=== PATIENT | male | born 1940 | race Caucasian/White ===

== ENCOUNTER 2023-07-07 17:55 | Emergency (ER) | payer MEDICARE, BC, SELFPAY ==
[2023-07-07 18:01] VITALS: BP 118/89
[2023-07-07 19:03] VITALS: BP 93/62
--- NOTE | 2023-07-07 19:10 | ED.GENMED ---
History of Present Illness
General
Chief Complaint: Weakness
Source: patient
Exam Limitations: none
Time Seen by Provider: 07/07/23 18:29
Travel History
Have you had any contact with someone who has COVID-19?: No
Do you have any symptoms of coronavirus? Fever > 100 degrees, chills, cough, shortness of breath, sore throat, loss of taste or smell, muscle aches, or headache?: No
History of Present Illness
History of Present Illness:
This is a 82 year old male that comes in with c/o weakness. States that for the past couple of days he has felt weak and tired. States that he just doesn't have the strength that he normally has in his arms. States that for the past 2 days it has
felt worse. States that his bowel are loss and that his blood sugar has been up and down. states that he vomited twice yesterday and he is really not eating. States that his head feels heavy and he is dizzy. Denies any fever, chills, chest
pain, SOB, abd pain, headache, urinary burning.
Past History
Past History
ED Past Medical History: Cancer (Skin cancer), HTN, Hypercholesterolemia, NIDDM, [place] and Other (Ulcers, Polio, )
ED Past Surgical History: Cardiac (triple bypass) and Orthopedic (Left knee)
Social History
Tobacco: Former smoker
Alcohol: Occasional
Drug: None
Personal:
Living: with family
Review of Systems
Review of Systems
All Other Systems: ROS reviewed and negative except as documented in HPI and ROS
Constitutional: Reports no symptoms; Denies fever or chills
EENT: Reports no symptoms
Respiratory: Reports no symptoms; Denies cough or trouble breathing
Cardiac: Reports no symptoms; Denies chest pain
ABD/GI: Reports nausea, vomiting and other (Loss stool); Denies abdominal pain
: Reports no symptoms
Musculoskeletal: Reports no symptoms
Skin: Reports no symptoms
Neurological: Reports dizzy (head feels heavy) and weakness (Generalized weakness); Denies headache
Psychiatric: Reports no symptoms
Phy Exam
General Physical Exam
General Presentation: no apparent distress
General age: appears stated age
General Skin: warm and dry
General Habitus: elderly
General Mental: alert
General Hydration: appears well hydrated
ENT Exam
ENT Exam: TM's normal, pharynx normal and neck supple
Eye Exam
Eye Exam: EOMI
Cardiovascular Exam
Cardiovascular Exam: regular rate/rhythm, no edema and normal peripheral pulses
Pulmonary Exam
Pulmonary Exam: lungs clear, no respiratory distress, no rales, chest non tender, no crackles, no rhonchi, no wheezing and no cough
Gastrointestinal Exam
Gastrointestinal Exam: normal bowel sounds, non tender, soft, no organomegaly, no pulsatile mass and non distended
NIH Stroke Score
Level of Consciousness: 0 - Alert
LOC questions: 0-Answers both correctly
LOC Commands: 0-Performs both correctly
Best Gaze: 0-Normal
Visual Wilder: 0=Normal, no visual loss
Facial palsy: 0=Normal, symmetrical
Motor - Right Arm: 0=No drift 10 seconds
Motor - Left Arm: 0=No drift 10 seconds
Motor - Right Le-No drift 5 seconds (Unable to lift due to Polo, chronic weakness)
Motor - Left Le-No drift 5 seconds (Unable to lift due to Polo, Chronic weakness)
Limb Ataxia: 0-Absent
Sensation: 0-Normal
Best Language: 0-No aphasia
Dysarthria: 0-Normal
Extinction and Inattention: 0-No abnormality
Total Score:: 0
Musculoskeletal Exam
Musculoskeletal Exam: edema (Slight left lower leg edema) and other (Chronic lower leg weakness due to Polo. Right foot brace. Hand grasp equal)
Skin Exam
Skin Exam: normal color, warm/dry, no rash and no petechia
Psychiatric Exam
Psychiatric Exam: normal mood/affect
Course
Orders/Labs/Results
Orders:
Orders
07/07/23 19:09
CT Head W/o Iv Contrast Urgent
Comment:
Reason For Exam: Generalized weakness, Dizziness
0.9% Sodium Chloride 1000 ml [Nss] 1,000 ml IV BOLUS
07/07/23 19:10
Ondansetron Injectable [Zofran] 4 mg IV NOW STA
07/07/23 19:19
Electrocardiogram (*1) Urgent
Reason for Study: Fatigue / Weakness
EKG- Treatment ONCE
07/07/23 19:20
COVID-19 Antigen Urgent
Source: Nasal Swab
Complete Blood Count/With Diff Urgent
Comprehensive Metabolic Panel Urgent
Manual Differential Urgent
07/07/23 21:36
Urinalysis Reflex To Culture Urgent
Date Specimen was Collected: 07/07/23
Time Specimen was Collected: 19:14
Abnormal Lab Results
07/07/23 07/07/23
19:20 21:36
WBC 11.8 H 10^3/uL
(4.8-10.8)
RBC 3.17 L 10^6/uL
(4.70-6.10)
Hgb 9.5 L g/dL
(13.0-18.0)
Hct 29.0 L %
(39.0-52.0)
MCHC 32.8 L g/dL
(33.0-37.0)
MPV 10.7 H fL
(7.4-10.4)
Abs Neuts (Manual) 10.1 H 10^3/uL
(1.4-6.5)
Band Neutrophils 11 H %
(0-3)
Lymphocytes (Manual) 9 L %
(20-51)
Sodium 134 L mmol/L
(135-145)
Chloride 97 L mmol/L
(98-107)
BUN 54 H mg/dl
(9-20)
Glucose 236 H mg/dl
(70-99)
Total Protein 6.2 L g/dl
(6.3-8.2)
Urine Glucose 3+ A
(Negative)
07/07/23 19:20
07/07/23 19:20
WBC slightly elevated. H/H low, bandemia, Dehydration. Glucose nonfasting. COVID negative. Urine negative for inection.
Vital Signs
Initial and Last Documented VS:
Initial Vital Signs
Temp Pulse Resp BP Pulse Ox
98.0 F 81 18 118/89 96
07/07/23 18:01 07/07/23 18:01 07/07/23 18:01 07/07/23 18:01 07/07/23 18:01
Last Documented Vital Signs
Temp Pulse Resp BP Pulse Ox
98.0 F 81 18 118/89 96
07/07/23 18:01 07/07/23 18:01 07/07/23 18:01 07/07/23 18:01 07/07/23 18:01
MDM/Problems Addressed
Differential Diagnosis Includes:
COVID, Generalized weakness, UTI
MDM/Problems Addressed:
This is a 82 year old male that comes in with c/o weakness for the past couple of days. State that in the past 2 days it seemed to get worse. States that his blood sugar has been up and down.
Will check labs. CT head, IV fluids and urine.
back into see patient. States that he is feeling some better. Explained that his blood work shows that he is dehydrated. This may also be a viral syndrome. Encouraged patient to follow up with the family doctor, Increase his water intake and return
with any concerns. Will also give patient a prescription for Zofran to use if any nausea/vomiting.
Chronic conditions affecting care:
NA
Acute Exacerbation and/or Progression of Chronic Illness:
NA
*Radiology
Radiology exam reviewed: radiology read reviewed (head-No acute intracranial abnormality. )
*Pulse Oximetry
Patient hypoxic: no
*EKG
Interpreted by ED Provider?: Yes
Heart Rate: 78
Rate: normal
Rhythm: sinus arrhythmia
[place]: left axis deviation
Interval: normal interval
QRS Pattern: normal QRS
Ischemia: T-wave inversion (aVL, V4, V5, V6 Checked by Dr. Ordonez)
*Shop Mechanic Interpretation
Rate: normal
Heart Rate: 79
Rhythm: sinus
*Critical Care Note
Total Time (30-74mins, 75-104mins- exclusive of procedures): Not Applicable
ED Attending Note
-
Portions of this chart may have been created with voice recognition software.� Occasional wrong word or��sound alike� substitutions may have occurred due to the inherent limitations of voice recognition software.
Discharge Plan
Departure
Patient Disposition: Home (Routine Discharge)
Date of Disposition: 07/07/23
Time of Disposition: 22:47
Patient with high blood pressure during this ER visit?: No
Condition: Good
Covid-19: Negative COVID-19
Discharge Problem:
Acute dehydration, Generalized weakness
Instructions: Dehydration, Adult (DC), Nausea and Vomiting, Adult (DC), Generalized Weakness (DC)
Prescriptions:
New
ondansetron 4 mg tablet,disintegrating
4 mg PO Q8H PRN (Reason: Nausea and vomiting) Qty: 7 0RF
No Action
tamsulosin 0.4 mg Capsule
0.4 mg PO DAILY
aspirin 81 mg Tablet,Chewable
81 mg PO DAILY
pantoprazole 40 mg Tablet,Delayed Release (Dr/Ec)
40 mg PO DAILY
escitalopram oxalate 10 mg tablet
10 mg PO DAILY
rosuvastatin 20 mg tablet
20 mg PO HS
Jardiance 25 mg tablet
25 mg PO DAILY
Trulicity 4.5 mg/0.5 mL pen injector
4.5 mg SC WEEKLY
metformin 500 mg tablet
1,000 mg PO BID@0800,1700
oxybutynin chloride 10 mg tablet extended release 24hr
10 mg PO DAILY
ramipril 2.5 mg capsule
2.5 mg PO DAILY
Levemir FlexPen 100 unit/mL (3 mL) insulin pen
18 unit SC HS
Trulicity 3 mg/0.5 mL pen injector
3 mg SC MO
Referrals:
Raj Renteria MD [Family Provider] - Follow up in 2-3 days
Activity Restrictions/Additional Instructions:
As discussed, your blood work shows that you are dehydrated. Please increase your water intake to 8-8oz glasses. You are negative for COVID and your Urine is negative for infection. Your CT of the head is normal. Please follow up with the family
doctor for further evaluation in 2-3 days. You have also been given a prescription for any nausea/vomiting. IF YOU HAVE ANY OTHER CONCERNS PLEASE RETURN TO THE EMERGENCY ROOM.
Interventions
Interventions:
*Risk Screen - Suicide Last Done: 07/07/23 18:01
*General Assessment Last Done: 07/07/23 18:01
*Neglect/Abuse Screening Last Done: 07/07/23 18:01
Discharge Date and Time
Print Language: SLOVAK
[2023-07-07] MEDS: NSS 1000 IV (19:15)
[2023-07-07] MEDS: ZOFRAN 4 MG IV (19:17)
[2023-07-07 19:22] VITALS: BMI 21.6
[2023-07-07 20:10] LABS: Hemoglobin 9.5 g/dL (13.0-18.0); Mean Corp Hgb Conc. 32.8 g/dL (33.0-37.0); Mean Corpuscular Volume 91.5 fL (80.0-94.0); Mean Platelet Volume 10.7 fL (7.4-10.4); Platelet Count 199 10^3/uL (130-400); Red Blood Cell Count 3.17 10^6/uL (4.70-6.10); Red Cell Dist. Width 14.2 % (11.5-14.5); White Blood Cell Count 11.8 10^3/uL (4.8-10.8)
[2023-07-07 20:20] LABS: ALT (SGPT) 21 U/L (0-50); AST (SGOT) 21 U/L (17-59); Albumin 3.8 g/dl (3.5-5.0); Alkaline Phosphatase 68 U/L (38-126); Blood Urea Nitrogen 54 mg/dl (9-20); COVID-19 Antigen Negative (Negative); Calcium 8.9 mg/dl (8.4-10.2); Carbon Dioxide 27 mmol/L (22-30); Chloride 97 mmol/L (98-107); Estimated Creatinine Clearance 46 ml/min; Glucose 236 mg/dl (70-99); Potassium 4.3 mmol/L (3.5-5.1); Sodium 134 mmol/L (135-145); Total Bilirubin 0.4 mg/dl (0.2-1.3); Total Protein 6.2 g/dl (6.3-8.2); eGFR > 60.00
[2023-07-07 21:01] LABS: Absolute Neutrophils -Man Diff 10.1 10^3/uL (1.4-6.5); Atypical Lymphocytes 2 %; Band Neutrophils 11 % (0-3); Lymphocytes 9 % (20-51); Monocytes 3 % (2-9); Platelets Checked Yes; Segmented Neutrophils 75 % (42-75)
[2023-07-07 21:02] LABS: Normal RBC Morphology Yes; Total Cells Counted 100
[2023-07-07 21:47] LABS: Urine Albumin Negative (Neg - Trace); Urine Bilirubin Negative (Negative); Urine Character Clear (Clear); Urine Color Yellow; Urine Glucose 3+ (Negative); Urine Ketone Negative (Negative); Urine Leukocyte Negative (Negative); Urine Nitrite Negative (Negative); Urine Occult Blood Negative (Negative); Urine Urobilinogen Negative (Neg - 1+)
[2023-07-07 23:10] VITALS: BP 96/59
== END 2023-07-07 23:22 | disposition home or self-care (01) ==
LOC: EMR 17:55
PROVIDERS: Clinical Nurse Specialist Family Health; EMERGENCY PHYSICIAN Emergency Medicine; FAMILY PHYSICIAN Internal Medicine
DX: E86.0 Dehydration (principal); Z11.52 Encounter for screening for COVID-19; Z87.891 Personal history of nicotine dependence
CPT/HCPCS: 99285; 96374; 96361; 70450; 80053; 81003; 85025; 87811; 93005

== ENCOUNTER 2024-07-02 22:53 | Emergency (ER) | payer MEDICARE, BC, SELFPAY ==
[2024-07-02 23:02] LABS: Glucose - Point of Care 218 mg/dl (70-99)
[2024-07-02 23:15] VITALS: BP 157/49; BMI 24.2
--- NOTE | 2024-07-02 23:26 | ED.CVA ---
History of Present Illness
General
Chief Complaint: CVA/TIA Symptoms
Source: patient, family and ambulance crew
Exam Limitations: clinical condition and altered mental status
Time Seen by Provider: 07/02/24 22:56
Onset of Stroke Symptoms
Onset of symptoms known: Yes
Date of onset of symptoms: 07/03/24
History of Present Illness
History of Present Illness:
This an 83-year-old male with a history of diabetes, hypertension, hyperlipidemia presents after altered mental status at home. Medics called via the EMS squad line calling for stroke alert. They report that the patient had what appeared to be an
aphasia. He was last seen normal at 9:30 PM. Shortly after arrival I spoke to the patient's who states that she had heard a thud and realized he had fallen. She found him on the floor. She states he was lucid and seemed okay but she could
not get him up so called a neighbor. They decided to leave him alone until medics got there. On arrival the patient is agitated and confused.
Past History
Past History
ED Past Medical History: Cancer (Skin cancer), HTN, Hypercholesterolemia, NIDDM, [place] and Other (Ulcers, Polio, )
ED Past Surgical History: Cardiac (triple bypass) and Orthopedic (Left knee)
Social History
Tobacco: Former smoker
Alcohol: Occasional
Drug: None
Personal:
Living: with family
Phy Exam
Physical Exam
Physical Exam:
CONSTITUTIONAL Patient alert and oriented to person. ill-appearing. Vital signs reviewed. Awake but agitated. Trying to get out of the bed on arrival
HEAD atraumatic, normocephalic.
EYES eyelids normal to inspection, Extraocular muscles intact, Conjunctiva normal, Sclera normal.
NECK normal range of motion, Trachea midline, no jugular venous distention. No obvious midline tenderness
RESPIRATORY CHEST No respiratory distress noted, Chest expansion equal
ABDOMEN abdomen nontender, Bowel sounds normal. No distention.
BACK normal inspection, no obvious deformities
UPPER EXTREMITY range of motion normal, Motor strength normal, no cyanosis, no edema.
LOWER EXTREMITY no cyanosis, no edema.
NEURO speech is clear but patient is agitated and somewhat confused. Does follow commands briefly but certainly poorly and does not follow through. Does have a boot on the right lower extremity. I did not witness him moving his lower
extremities but he does have a noted history of polio. There is no obvious cranial nerve deficit. There is no pronator drift
Course
Orders/Labs/Results
Orders:
Orders
07/02/24 22:56
CT HEAD STROKE ALERT W/o Cont Urgent
Comment:
Reason For Exam: confusion, acute onset
CT HEAD/NECK ANG STROKE ALERT Urgent
Comment:
Reason For Exam: confusion, acute onset
Bedside Glucose- Treatment ONCE
Cardiac Monitoring- Treatment ONCE
IV Insert/Care/Rem.- Treatment PRN
O2 Therapy [RESP] Stat
Titrate/Wean O2 to maintain O2 sat greater than (%): 88
Pulse Ox/cont/shift [RESP] Stat
Quantity: 1
07/02/24 22:57
Electrocardiogram (*1) Stat
Reason for Study: Other
Other Reason for Exam: neuro symptoms
EKG- Treatment ONCE
Drug Screen, Urine [Urine Drug Abuse Screen] Urgent
07/02/24 22:58
Urinalysis Reflex To Culture Urgent
07/02/24 23:29
Alcohol Urgent
Complete Blood Count/With Diff Urgent
Comprehensive Metabolic Panel Urgent
PTT Urgent
Prothrombin Time Urgent
07/02/24 23:50
Nicardipine 40 mg/200 ml [Cardene] 40 mg in 200 ml .ROUTE .STK-MED
07/02/24 23:58
Nicardipine INF (STD CONC-40 mg/200 mL) NOW x 1 BAG Nicardipine 40 mg/200 ml [Cardene] 40 mg in 200 ml IV NOW
Initial dose in mg/hr, then titrate:: 5
Titrate to keep:: SBP 120 - 140 mmHg
Titrate by mg/hr:: 2.5 mg/hr
Frequency of titrations (minutes):: 5-15 minutes
Maximum dose in mg/hr:: 15
Begin to taper infusion when:: Remained at goal for 2hrs
Taper by mg/hr:: 2.5 mg/hr
Frequency of taper (minutes) if patient maintains goal:: 15-30 minutes
Taper to off?: Yes
If infusion off & no longer maintaining goal:: Contact Provider
Abnormal Lab Results
07/02/24 07/02/24
23:01 23:29
RBC 3.69 L 10^6/uL
(4.70-6.10)
Hgb 11.2 L g/dL
(13.0-18.0)
Hct 34.1 L %
(39.0-52.0)
MCHC 32.8 L g/dL
(33.0-37.0)
Absolute Lymphs (auto) 3.5 H 10^3/uL
(1.2-3.4)
Absolute Monos (auto) 0.7 H 10^3/uL
(0.1-0.6)
Potassium 5.9 H mmol/L
(3.5-5.1)
BUN 37 H mg/dl
(9-20)
Glucose 222 H mg/dl
(70-99)
POC Glucose 218 H mg/dl
(70-99)
07/02/24 23:29
07/02/24 23:29
Vital Signs
Initial and Last Documented VS:
Initial Vital Signs
Temp Pulse Resp BP Pulse Ox
98.7 F 88 16 157/49 98
07/02/24 23:15 07/02/24 23:15 07/02/24 23:15 07/02/24 23:15 07/02/24 23:15
Last Documented Vital Signs
Temp Pulse Resp BP Pulse Ox
98.7 F 90 14 164/80 99
07/02/24 23:15 07/02/24 23:45 07/02/24 23:45 07/02/24 23:39 07/02/24 23:26
MDM/Problems Addressed
MDM/Problems Addressed:
Acute subdural hematoma, acute uncontrolled hypertension
*Radiology
Radiology exam reviewed: preliminary read by ED provider (Left-sided subdural noted by my review)
*Pulse Oximetry
Patient hypoxic: no
*EKG
Interpreted by ED Provider?: Yes
Interpretation: abnormal
Rate: normal
[place]: left axis deviation
Ischemia: non-specific ST changes
*Astronaut Mission Specialist Interpretation
Rate: normal
Interpretation: normal
Rhythm: sinus
*Critical Care Note
Total Time (30-74mins, 75-104mins- exclusive of procedures): 40 minutes
Data Reviewed
Source: patient, family and ambulance crew
Prescriptions/Medications Considered But Not Given:
Consider DDAVP but trauma surgery will reassess
Patient Management
Discussion with other providers: Activities Concierge (Trauma surgery at [facility]) and Radiologist
Escalation/DeEscalation of care consider admission/obs:
Case discussed with trauma surgery. Case discussed with radiologist. Patient presents after a fall at home and comes in with altered mental status. Found to have subdural hematoma. Patient does state that he takes 81 mg of aspirin daily but no
other anticoagulants. Trauma surgery recommends keeping blood pressure below 140 systolic. 2.5 mg/h Cardene drip initiated. Flight team at bedside. Patient's gave verbal consent for transfer
ED Attending Note
-
Portions of this chart may have been created with voice recognition software.� Occasional wrong word or��sound alike� substitutions may have occurred due to the inherent limitations of voice recognition software.
Discharge Plan
Departure
Patient Disposition: Acute Care Hospital
Date of Disposition: 07/02/24
Time of Disposition: 23:26
Discharge Problem:
Subdural hematoma
Prescriptions:
No Action
tamsulosin 0.4 mg Capsule
0.4 mg PO BID
escitalopram oxalate 10 mg tablet
10 mg PO DAILY
rosuvastatin 20 mg tablet
20 mg PO HS
Jardiance 25 mg tablet
25 mg PO DAILY
metformin 500 mg tablet
1,000 mg PO BID@0800,1700
oxybutynin chloride 10 mg tablet extended release 24hr
10 mg PO BID
insulin glargine [Basaglar KwikPen U-100 Insulin] 100 unit/mL (3 mL) Insulin Pen
10 unit SC HS
Trulicity 1.5 mg/0.5 mL Pen Injector
1.5 mg SC QWEEK
Hospital Transfer
Other hospital: [facility]
I certify that the patient requires transfer: Yes
Discussed case with accepting physician: Dr Murrya
Reason for transfer: specialties available
Interventions
Interventions:
*Risk Screen - Suicide Last Done: 07/02/24 23:15
*General Assessment Last Done: 07/02/24 23:15
*Neglect/Abuse Screening Last Done: 07/02/24 23:15
*ED COVID-19 Vaccine History Last Done: 07/02/24 23:15
ED- Pulmonary Assessment Last Done: 07/02/24 23:21
ED- Neurological Assessment Last Done: 07/02/24 23:21
ED- Cardiac Assessment Last Done: 07/02/24 23:21
ED Swallowing Screen Last Done: 07/02/24 23:21
Discharge Date and Time
Print Language: BERMUDIAN
[2024-07-02 23:36] LABS: % Basophils 0.2 % (0-2); % Eosinophils 2.2 % (0-6); % Immature Granulocytes 0.2 % (0-0.5); % Lymphocytes 39.5 % (20.5-51.1); % Neutrophils 49.9 % (42.2-75.2); Absolute Eosinophils 0.2 10^3/uL (0-0.7); Absolute Lymphocytes 3.5 10^3/uL (1.2-3.4); Absolute Monocytes 0.7 10^3/uL (0.1-0.6); Absolute Neutrophils 4.5 10^3/uL (1.4-6.5); Hematocrit 34.1 % (39.0-52.0); Hemoglobin 11.2 g/dL (13.0-18.0); Mean Corp Hgb Conc. 32.8 g/dL (33.0-37.0); Mean Corpuscular Hgb 30.4 pg (27.0-31.0); Mean Corpuscular Volume 92.4 fL (80.0-94.0); Mean Platelet Volume 10.1 fL (7.4-10.4); Nucleated Red Blood Cells % 0 % (-); Platelet Count 214 10^3/uL (130-400); Red Blood Cell Count 3.69 10^6/uL (4.70-6.10); Red Cell Dist. Width 14.2 % (11.5-14.5)
[2024-07-02 23:39] VITALS: BP 164/80
--- NOTE | 2024-07-02 23:40 | PHANOTE ---
med rec tech(07/02/24)-Attempted to call spouse at numbers on chart, but had no response, will try again later. Assembled medication list through [facility] and details from Dr. Romeo's conversation with spouse at same number. Will attempt to call
again before end of shift.
[2024-07-02 23:44] LABS: APTT 26.1 Sec (23.4-35.0); INR 0.95; PT 13.2 Sec (11.4-14.6)
[2024-07-02 23:48] LABS: ALT (SGPT) 25 U/L (0-50); AST (SGOT) 26 U/L (17-59); Albumin 4.4 g/dl (3.5-5.0); Alkaline Phosphatase 71 U/L (38-126); Blood Urea Nitrogen 37 mg/dl (9-20); Calcium 9.6 mg/dl (8.4-10.2); Carbon Dioxide 30 mmol/L (22-30); Chloride 104 mmol/L (98-107); Estimated Creatinine Clearance 57 ml/min; Glucose 222 mg/dl (70-99); Potassium 5.9 mmol/L (3.5-5.1); Sodium 144 mmol/L (135-145); Total Bilirubin 0.4 mg/dl (0.2-1.3); eGFR > 60.00
[2024-07-02 23:50] LABS: Alcohol None Detected
[2024-07-02] MEDS: CARDENE 200 IV (23:59)
[2024-07-03 00:01] VITALS: BP 137/88
[2024-07-03 00:21] LABS: Urine Albumin Negative (Neg - Trace); Urine Bilirubin Negative (Negative); Urine Character Clear (Clear); Urine Color Yellow; Urine Glucose 4+ (Negative); Urine Ketone Negative (Negative); Urine Leukocyte Negative (Negative); Urine Nitrite Negative (Negative); Urine Occult Blood Negative (Negative); Urine Urobilinogen Negative (Neg - 1+); Urine pH 6.5 (5.0-9.0)
[2024-07-03 01:00] LABS: Amphetamines Negative (Negative); Barbiturates Negative (Negative); Benzodiazepines Negative (Negative); Buprenorphine Negative (Negative); Cocaine Negative (Negative); Marijuana Negative (Negative); Methadone Negative (Negative); Methamphetamines Negative (Negative); Opiates Negative (Negative); Phencyclidine Negative (Negative); Tricyclic Antidepressants Negative (Negative)
== END 2024-07-03 00:36 | disposition short-term general hospital (02) ==
LOC: EMR 22:53
PROVIDERS: Emergency Medicine; EMERGENCY PHYSICIAN Emergency Medicine
DX: S06.5XAA Traumatic subdural hemorrhage with loss of consciousness status unknown, initial encounter (principal); W19.XXXA Unspecified fall, initial encounter; E11.9 Type 2 diabetes mellitus without complications; E78.00 Pure hypercholesterolemia, unspecified; I10 Essential (primary) hypertension; Z85.828 Personal history of other malignant neoplasm of skin; Z87.891 Personal history of nicotine dependence
CPT/HCPCS: 99291; 96374; 70450; 70496; 70498; 80053; 80306; 81003; 82077; 82962; 85025; 85610; 85730; 93005; Q9967

== ENCOUNTER 2024-11-08 19:07 | Inpatient (IN) | payer MEDICARE, SELFPAY ==
[2024-11-08] VITALS (36 sets, daily range): BP systolic 121–146; BP diastolic 56–81; BMI 24.2; BMI 23.1
[2024-11-08 17:35] LABS: Glucose - Point of Care 125 mg/dl (70-99)
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
[2024-11-08] MEDS: NSS 500 IV (18:15)
[2024-11-08 18:19] LABS: Hematocrit 29.4 % (39.0-52.0); Hemoglobin 9.9 g/dL (13.0-18.0); Mean Corp Hgb Conc. 33.7 g/dL (33.0-37.0); Mean Corpuscular Volume 90.7 fL (80.0-94.0); Nucleated Red Blood Cells % 0 % (-); Platelet Count 226 10^3/uL (130-400); Red Cell Dist. Width 13.2 % (11.5-14.5)
[2024-11-08 18:33] LABS: INR 1.01; PT 13.6 Sec (11.4-14.6)
[2024-11-08 18:34] LABS: APTT 26.6 Sec (23.4-35.0)
[2024-11-08 18:46] LABS: Blood Urea Nitrogen 27 mg/dl (9-20); Calcium 7.8 mg/dl (8.4-10.2); Carbon Dioxide 22 mmol/L (22-30); Chloride 110 mmol/L (98-107); Estimated Creatinine Clearance 72 ml/min; Glucose 101 mg/dl (70-99); Potassium 4.0 mmol/L (3.5-5.1); Sodium 139 mmol/L (135-145); eGFR > 60.00
[2024-11-08] MEDS: TNKASE 3.4 MG IV (18:50)
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
--- NOTE | 2024-11-08 20:30 | PTCARENOTE ---
rec'd pt from ER around 1940, handoff NIH completed with ER nurse. NIH 9 (see flowsheet - mild aphasia, R facial droop, no mvmt against gravity in b/l LE). stroke flowsheet ongoing. pt with clear speech but confused conversation. pupils b/l 2mm
brisk. SCDs placed, BP and HR stable - see VS. on RA, O2 sat 99%. pt remains NPO, oral care provided. pt bladder scan for 372ml, CC #25 placed. PIV x2 flushed. CXR done. stroke packet given. HOB 30 degrees, bed alarm on. call randhawa in reach.
[2024-11-08] MEDS: CRESTOR PO (20:44)
[2024-11-09] VITALS (51 sets, daily range): BP systolic 102–150; BP diastolic 54–97; BMI 23.1
--- NOTE | 2024-11-09 01:10 | PTCARENOTE ---
pt reassessed. stroke neuro checks continue, neuro status unchanged. pt remains forgetful at times, picking at gown. bleeding precautions maintained. pt voiding with CC. HOB remains 30 degrees, bed alarm on. call randhawa in reach.
[2024-11-09 02:08] LABS: Glucose - Point of Care 127 mg/dl (70-99)
--- NOTE | 2024-11-09 02:58 | W.PN.UPDATE ---
Update Note
Progress Note Update
0200- After TNK patient had initial improvement with aphasia and was able to answer short words/phrases and had improvement with right facial droop. Now patient with worsening aphasia globally with garbled speech. He is unable to follow complex
commands or mimic examiner. NIH 12. Repeat Stat Ctscan of the head w/o contrast ordered. SBP 140s, no hypotension or changes in BP. [facility] stroke neurologist Dr. Izaguirre updated and reviewed case. Repeat Ctscan negative for bleed. Will give 500cc
IVF fluid bolus. EEG ordered routine.
NEURO:
Mental Status:�Alert but unable to verbalize answers to questions for orientation. Language is garbled.
Cranial Nerve:�Pupils are equal, round, and reactive to light. Ocular movements are intact. Face has right facial droop. Significant dysarthria.
Motor:�Strength is 5/5 on left arm and right arm, bilateral legs 0/5 (history of polio)
Sensory:�Sensation grossly intact.
Coordination:�Unable to assess as he was unable to follow commands or mimic direction
Gait:�Deferred due to acuity
--- NOTE | 2024-11-09 03:00 | PTCARENOTE ---
@ 0152 stroke neuro check, pt with progressively worse aphasia, barely following commands with constant reiteration, garbled speech, not answering orientation questions correctly. pt with hand tremors, BGM checked - result 127. NIH performed, new
score of 12 - see flowsheet. ICU [facility] made aware and to bedside to reassess pt. stat head CT ordered, [facility] communicating with [facility] team. 500cc NS bolus ordered. routine EEG ordered. bleeding precautions maintained, call randhawa in reach. care
continues.
[2024-11-09] MEDS: NSS 500 IV (03:06)
[2024-11-09 03:10] LABS: Hematocrit 29.4 % (39.0-52.0); Hemoglobin 9.9 g/dL (13.0-18.0); Mean Corp Hgb Conc. 33.7 g/dL (33.0-37.0); Mean Corpuscular Volume 88.8 fL (80.0-94.0); Platelet Count 219 10^3/uL (130-400); Red Cell Dist. Width 13.3 % (11.5-14.5)
[2024-11-09 03:20] LABS: INR 1.06; PT 14.2 Sec (11.4-14.6)
[2024-11-09 03:21] LABS: APTT 25.5 Sec (23.4-35.0)
[2024-11-09 03:29] LABS: Blood Urea Nitrogen 29 mg/dl (9-20); Calcium 9.2 mg/dl (8.4-10.2); Carbon Dioxide 24 mmol/L (22-30); Chloride 105 mmol/L (98-107); Estimated Creatinine Clearance 63 ml/min; Glucose 118 mg/dl (70-99); HDL Cholesterol 58 mg/dl; LDL Cholesterol, Calculated 46 mg/dl; Potassium 4.8 mmol/L (3.5-5.1); Sodium 138 mmol/L (135-145); Very Low Density Lipoprotein 16 mg/dl (0-30); eGFR > 60.00
--- NOTE | 2024-11-09 07:30 | PTCARENOTE ---
Received patient A&Ox0, drowsy, arousable to voice/own name, unable to answer question appropriately, unable to follow simple commands, Right facial droop present, Aphasia, Dysarthria, Left Arm stronger than Right Arm, B/L LE no efforts, new NIH
score 18. Dairy Tester at bedside, pending STAT head CT.
Other physical assessments include patient on RA, NSR w/ PACs, BP WNL, failed nursing bedside swallow eval, NPO now, condom cath in place.
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
--- NOTE | 2024-11-09 08:36 | W.PN.HOSP.TC ---
Today's Communication/Plan
-
See plan
Assessment / Plan
Assessment / Plan
Physical exam:
General: Acutely ill
HEENT: Normocephalic, Atraumatic and Moist Mucous Membranes
Respiratory: Clear to Auscultation; Negative Wheezes, Rales or Rhonchi
Cardiac: Regular Rhythm and S1/S2
GI: Soft, Nontender and Nondistended
Musculoskeletal: No Clubbing, No Cyanosis and No Edema
Neuro: Lethargic, decreased strength of right upper extremity with drift down to the bed, decreased strength in both lower extremity with history of polio, right facial droop present, does follow simple command, aphasia.
Psych: Limited judgment and insight. Restless and sometimes agitated on and off.
A/P:
Acute stroke:
Status post TNK last evening
Neurology reconsulted this morning-discussed with neurology via [place] text
Repeat a CT scan x 2 with no acute bleed
Plan for MRI of the brain
PT OT eval and garage door technician consulted upon admission
Speech therapy recommend keep n.p.o.
Neurology ordering aspirin for later this evening and continue statins.
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
Gentle IV fluid hydration
Plan for echocardiogram in a.m.
Discussed with daughter over the phone,Mili Munguia ([phone]). Also, family will bring accurate list of medications to the hospital.
Toxic metabolic encephalopathy:
Likely related to stroke
Rule out seizures or other acute issues
Plan for EEG
Seen repeated CT scans
Continue to monitor mental status and behavior
Nonviolent restraints for now
History of subdural hematoma:
Patient was in rehab after intracranial bleed and then was doing home PT OT
History of CAD:
On anti-ischemic regimen until able to take oral
Diabetes mellitus type 2:
Insulin sliding scale
Monitor blood sugars closely
Anemia:
No signs of active bleeding
Continue to monitor hemoglobin closely
Other medical problems:
History of Polio
History of depression
History of GERD
Hypertension
Hyperlipidemia
BPH
DVT prophylaxis
SCDs (less than 24 hours of thrombolytics)
CODE STATUS:
Full code
Total Critical Care Time__45___ minutes. I was immediately available to the patient and staff. I personally examined, reviewed labs, diagnostic images/reports, interpretations, treatment plans, discussed patient care with other providers and
family or caregivers (if patient is unable to make decisions), entered orders as appropriate and documented the medical record.
Anticipated Discharge: > 48 hours
Subjective/Interval History
-
Date of Service: November 09, 2024
Overnight events reviewed. Patient seen and examined. Asked to see him urgently this morning. Patient remains encephalopathic but follows simple commands occasionally. Aphasic
Objective Data
-
Labs:
Laboratory Results
11/09/24
03:00
WBC 11.0 H
Hgb 9.9 L
Hct 29.4 L
Plt Count 219
PT 14.2
INR 1.06
APTT 25.5
Sodium 138
Potassium 4.8
Chloride 105
Carbon Dioxide 24
BUN 29 H
Creatinine 0.8
Glucose 118 H
Calcium 9.2
Vital Signs:
Vital Signs
Temp Pulse Resp BP Pulse Ox
98.9 F 90 18 120/54 95
11/09/24 04:50 11/09/24 06:01 11/09/24 06:01 11/09/24 06:01 11/09/24 06:01
I&O
11/08/24 11/09/24 11/10/24
06:59 06:59 06:59
Intake Total 1000 / 1000
Output Total 1200 / 1200
Balance -200 / -200
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
--- NOTE | 2024-11-09 12:00 | PTCARENOTE ---
Patient became restless for the last half hour, unable to orient and redirect, trying to sit up and over reach outside the bed, Notified Dr. Stone and MD ordered B/L soft wrist restraints.
[2024-11-09 12:04] LABS: Glucose - Point of Care 154 mg/dl (70-99)
--- NOTE | 2024-11-09 13:30 | PTOTSP ---
Speech Therapy Evaluation:
Swallow:
Pt with acute risk factor for dysphagia including c/f acute CVA. Oral phase appeared grossly functional for consistencies assessed. Noted 1x prolonged coughing episode with thin liquids via straw. No s/sx of aspiration with ice chips, thins via tsp,
or puree, however cannot r/o silent aspiration given limitations at bedside and pt specific risk factors. Given bedside performance, increasing NIH, and neuro note indicating that pt is stroking gradually over 2-3 days, with worsening deficits,
recommend to continue NPO at this time.
Language:
Pt largely non-verbal. Very few verbalizations that were mostly unintelligible due to dysarthria. Significant expressive and receptive language deficits. Pt would benefit from comprehensive speech and language assessment.
Recommend:
1. Continue NPO
2. Essential medications crushed in puree
3. ARHP via ice chips following oral care with RN supervision
4. FIRE PREVENTION FORESTER to follow to assess candidacy for diet initiation versus need for instrumental assessment and for speech/language assessments
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
[2024-11-09] MEDS: LR 1000 IV (15:10)
--- NOTE | 2024-11-09 16:30 | PTCARENOTE ---
Patient sleeps and wakes up intermittently, unable to follow commands fully, unable to redirect to the current situation, RASS +1, continue B/L soft wrist restraints for safety. The rest assessments unchanged from previous.
[2024-11-09 17:27] LABS: Glucose - Point of Care 132 mg/dl (70-99)
[2024-11-09] MEDS: NOVOLOG FLEXPEN-MODERATE RESISTANCE SC (17:30)
[2024-11-09] MEDS: ASPIRIN 300 MG RECTAL (19:03)
--- NOTE | 2024-11-09 20:00 | PTCARENOTE ---
rec'd pt, NIH handoff done with carmella KAUFFMAN, NIH 18. pt arousable to voice, moaning, garbled speech. b/l soft wrist restraints in place. SR on monitor. on RA, O2 sat 98%. pt remains NPO per speech. CC #[address] IVF infusing. bleeding precautions
maintained, care ongoing.
[2024-11-09] MEDS: CRESTOR PO (21:03)
[2024-11-09 23:34] LABS: Glucose - Point of Care 124 mg/dl (70-99)
[2024-11-10] VITALS (19 sets, daily range): BP systolic 99–136; BP diastolic 49–75; PULSE 60–61; O2SAT 98–99; BMI 23.3
--- NOTE | 2024-11-10 00:12 | PTCARENOTE ---
pt reassessed. more difficult to arouse, follows no commands, global aphasia noted. new NIH 20, ICU INGOT BUGGY OPERATOR made aware and at bedside to assess pt. no new orders at this time. GCS 10, see stroke neuro flowsheet. bleeding precautions maintained,
restraints intact. care continues.
[2024-11-10] MEDS: LR 1000 IV ×2 (00:17→11:49)
[2024-11-10 03:47] LABS: Hematocrit 27.2 % (39.0-52.0); Hemoglobin 9.1 g/dL (13.0-18.0); Mean Corp Hgb Conc. 33.5 g/dL (33.0-37.0); Mean Corpuscular Volume 90.7 fL (80.0-94.0); Platelet Count 193 10^3/uL (130-400); Red Cell Dist. Width 13.4 % (11.5-14.5)
--- NOTE | 2024-11-10 04:00 | PTCARENOTE ---
pt reassessed, no changes in assessment noted. labs sent. care ongoing.
[2024-11-10 04:27] LABS: Blood Urea Nitrogen 25 mg/dl (9-20); Calcium 8.5 mg/dl (8.4-10.2); Carbon Dioxide 23 mmol/L (22-30); Chloride 106 mmol/L (98-107); Estimated Creatinine Clearance 63 ml/min; Glucose 78 mg/dl (70-99); Potassium 4.2 mmol/L (3.5-5.1); Sodium 138 mmol/L (135-145); eGFR > 60.00
[2024-11-10 05:13] LABS: Glucose - Point of Care 90 mg/dl (70-99)
[2024-11-10] MEDS: ASPIRIN 300 MG RECTAL (07:42)
[2024-11-10] MEDS: NOVOLOG FLEXPEN-MODERATE RESISTANCE SC ×3 (07:49→16:57)
[2024-11-10 07:59] LABS: Glucose - Point of Care 82 mg/dl (70-99)
--- NOTE | 2024-11-10 08:00 | PTCARENOTE ---
Received pt @ change of shift; NIH completed w off going RN- scored 18- see flow sheet. GCS-11. Lethargic/confused/intermittently follows commands. CPOT-0 using nonverbal scale. SB/SR w 1st degree AVB and PAC's. SpO2 98% on RA. Auscultated FC
@ R base. Hypoactive BS, abd round; strict NPO d/t mentation. #[address] draining yellow urine. #18 R/L FA patent, dressing c/d/i. Pt. repositioned per protocol. Bed alarm active. EEG in progress.
--- NOTE | 2024-11-10 08:55 | CON.MD ---
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 to monitor neurologic status.��
Dysphagia: speech, oral care protocol,aspiration precautions.� Had video swallow and placed on a regular solid and thin liquid diet with plan for frequent and thorough oral care.
Dysarthria: speech�
HLD: Rosuvastatin 20 mg PO BID�
DM II: Hemoglobin A1c 8.5 Accu-Cheks, insulin sliding scale. Home medications held for now (Jardiance, dulaglutide, glargine 10 units at night)
Bilateral lower extremity edema: Consider TEDS as able. Increased fluid will cause more force requirement to move lower extremities which requires more strength and increases fatigue.�
Acute on chronic normocytic anemia: Consider anemia workup, monitor, no active bleeding noted. Hemoglobin 9.1 from 9.9. Has been in the 9-11 range over the past couple of years.
History of bilateral lower extremity polio: Noted. Does furniture walking at home and uses a wheelchair or electric cart at the store. Does not have braces for the legs
Psych: Monitor mood, adjust Escitalopram 10 mg PO daily as needed
FEN: Regular diet, could change to carbohydrate controlled if needed
Skin: monitor for pressure sores/rashes/lesions.�
Pain: acetaminophen as needed.�
Bowel: Colace and Senna, PRN bisacodyl.�
Bladder: Time void, PVRs, PRN straight cath.� Takes Oxybutynin 10 mg PO BID. Tamsulosin 0.4 mg PO BID.
GI Prophylaxis: Pantoprazole�
DVT Prophylaxis: Mechanical, chemoprophylaxis when okay with neurology.�
Pulmonary: Incentive spirometry�
Safety: Continue to reinforce assistance with all transfers.�
Code Status:� Full code�
Dispo (date/plan/equipment needs): Acute rehab.� Social history reviewed.�
Functional and Medical Goals: Modified Independent with ADL�s, ambulation, transfers�
Discharge destination: Acute inpatient rehabilitation with persistent aphasia and decrease in baseline functional status with concern for clinical CVA s/p TNK.
Attending Statement:
I saw and examined the patient 11/10/2024. Reviewed care plan with patient,and resident. I agree with the above subjective and review of systems as documented by Dr. Anderson with adjustments made as necessary. Physical exam and plan represents my exam
and plan. A total of 60 minutes were spent with the patient preparing for the evaluation, obtaining history, performing examination and evaluation, counseling, data review, case management, care coordination, recorder helper seismograph, and EMR documentation.
Summary of recommendations:
�Discharge Destination: Acute inpatient rehabilitation
-Monitor tongue dark discoloration
-Consider chemoprophylaxis when cleared by neurology.
- Monitor oral intake and add diabetic medications as appropriate
- Monitor with a bowel program and monitor for urinary retention.
- Change diet to carbohydrate controlled as needed
- Consider anemia workup
�
We will continue to follow the patient.��
�
Thank you for allowing me to care for your patient. Please contact me with any questions or concerns.�
Consultation
-
Performing Provider: Lali Anderson, Naif Rubin MD
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
[2024-11-10 09:03] LABS: Glycohemoglobin (HgbA1c) 8.5 % (4.0-5.6)
--- NOTE | 2024-11-10 09:43 | EEG.RPT ---
Electroencephalogram Report
Recording
Date of EE11/10/24
Type of EEG: Routine
Length of EEG recordin minutes
Done with Video Recording: Yes
Patient Status: Inpatient
Recording Conditions: Awake, Drowsy and Asleep
Hyperventilation Performed: No
Photic Stimulation Performed: Yes
Report
LESS THAN 1 HOUR EEG REPORT
LESS THAN 1 HOUR EEG INTERPRETATION:
Mildly abnormal study for age based on low amplitude even for age, generalized slowing demonstrated bihemispherically equally
CLINICAL CORRELATION:
Although normative values not been established for a person of this advanced age the patient�s symmetry of the background suggests that this study was suggestive of mild bihemispheric cortical dysfunction. No epileptiform features were demonstrated.
If concerns remain regarding epilepsy, prolonged monitoring may be of assistance.
Clinical correlation is advised.
METHODS:
A 21-channel digital electroencephalogram (EEG) was performed at the bedside in the ICU. The 10/20 international system of electrode placement was used with ECG and lateral/vertical eye movements recorded. The [employer] quantitative EEG analysis
system was performed
IMPRESSION(S):
Quality of study
Fair
Background
Low amplitude
Anterior-posterior voltage gradient differentiation: Fair
Theta frequency maximal background demonstrated
Sleep
Drowsiness present
Stage II sleep was characterized by K complexes and sleep spindles
Hyperventilation
Not performed
Photic Stimulation
Failed to activate the record
ECG
Normal rhythm
Abnormal Activity
None
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
--- NOTE | 2024-11-10 11:35 | PTOTSP ---
Speech Therapy Evaluation:
Given c/f acute CVA with NIH 20 and severe language deficits, expressive/receptive language was formally assessed via the Quick Aphasia Battery (QAB 1). Scores were as follows:
Word Comprehension: 0.00
Sentence Comprehension: 0.00
Word Findin.58
Grammatical Construction: 7.13
Speech Motor Programmin.00
Repetition: 7.08
Readin.00
QAB Overall: 3.39 - severe
Impression: Pt presents with severe mixed aphasia. He earned a score of 3.39 on the QAB with reductions in word comprehension, sentence comprehension, word finding, grammatical construction, repetition, and reading. Pt was able to functionally
verbalize short utterances (i.e. why am I here?), however noted reduced length and complexity of utterances, reduced speech rate, anomia, paraphasias, neologisms, and self-corrections. Pt's communication has improved since initial ELECTRIC MOTOR REPAIRMAN evaluation on
11/09, however communication remains limited and care team should continue to anticipate wants/needs of pt.
Pt would benefit from intensive ELECTRIC MOTOR REPAIRMAN services at acute care level and following d/c to target functional communication skills.
[2024-11-10 12:45] LABS: Glucose - Point of Care 97 mg/dl (70-99)
--- NOTE | 2024-11-10 12:51 | PTCARENOTE ---
Addendum entered by Terri Ham RN 11/10/24 13:18:
pt. sent via stretcher on cardiac exercise specialist for video swallow; awaiting testing completion.
Original Note:
Pt.'s mentation improving since this AM. Pt. now following commands w some difficulty understanding @ x's, re-directable. Significant improvement in expressive/receptive aphasia/dysarthria; pt. now able to communicate w mostly approp sentences.
Repeat NIH complete- scored 11. EEG and ECHO completed @ bedside this AM. PT/OT to bedside; assisted pt. OOB to chair @ approx 1200; tolerating position. FORENSIC MEDICAL EXAMINER to bedside this AM for assessment as well; plan for VSE later.
--- NOTE | 2024-11-10 15:10 | PTCARENOTE ---
pt received from icu. bedside nihss done with multicultural manager. pt has slight exp aphasia and slurring of words right side facial droop. both legs are weak but pt states he has a history of polo. so its his baseline. dht removed per doctor order.
--- NOTE | 2024-11-10 15:40 | PTOTSP ---
Speech Therapy Evaluation:
Patient presents with functional oral and pharyngeal stage of swallowing. No confirmed penetration or aspiration visualized during the study. No significant residue observed. Please see patient care note for full details of swallowing physiology.
Recommend:
1.Initiation of IDDSI Level 7 (regular solids) and thin liquids
2.Medications as tolerated
3.General aspiration precautions
4.Modifiable risk factors for aspiration pneumonia including encouraging frequent and thorough oral care, pulmonary hygiene measures, and increasing physical mobility as medically feasible
5. FOUNTAIN JERK to follow for education regarding VSE findings and recommendations and for diet tolerance s/p initiation
[2024-11-10 16:52] LABS: Glucose - Point of Care 116 mg/dl (70-99)
[2024-11-10] MEDS: CRESTOR 20 MG PO (20:15)
[2024-11-10 21:40] LABS: Glucose - Point of Care 232 mg/dl (70-99)
[2024-11-11] VITALS (8 sets, daily range): BP systolic 108–142; BP diastolic 53–76; PULSE 65–66; O2SAT 98
[2024-11-11 06:59] LABS: Glucose - Point of Care 136 mg/dl (70-99)
[2024-11-11] MEDS: NOVOLOG FLEXPEN-MODERATE RESISTANCE SC (08:21)
[2024-11-11] MEDS: ASPIR LOW (ENTERIC COATED) 81 MG PO (08:32)
[2024-11-11 11:29] LABS: Glucose - Point of Care 299 mg/dl (70-99)
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
[2024-11-11] MEDS: NOVOLOG FLEXPEN-MODERATE RESISTANCE 5 UNITS SC (13:09)
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
[2024-11-11 16:17] LABS: Glucose - Point of Care 177 mg/dl (70-99)
[2024-11-11] MEDS: NOVOLOG FLEXPEN-MODERATE RESISTANCE 1 UNITS SC (16:28)
[2024-11-11] MEDS: CRESTOR 20 MG PO (20:34)
[2024-11-11 21:30] LABS: Glucose - Point of Care 296 mg/dl (70-99)
[2024-11-12] VITALS (7 sets, daily range): BP systolic 110–127; BP diastolic 51–60; PULSE 64
[2024-11-12 08:07] LABS: Glucose - Point of Care 192 mg/dl (70-99)
[2024-11-12] MEDS: NOVOLOG FLEXPEN-MODERATE RESISTANCE 1 UNITS SC (09:40)
[2024-11-12] MEDS: ASPIR LOW (ENTERIC COATED) 81 MG PO (09:40)
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
[2024-11-12 12:04] LABS: Glucose - Point of Care 471 mg/dl (70-99)
[2024-11-12 12:52] LABS: Glucose 408 mg/dl (70-99)
[2024-11-12] MEDS: NOVOLOG FLEXPEN-MODERATE RESISTANCE 11 UNITS SC (12:57)
--- NOTE | 2024-11-12 14:57 | W.PN.HOSP.TC ---
Today's Communication/Plan
-
DC to acute rehab when bed available
Assessment / Plan
Assessment / Plan
A/P:
Suspect acute stroke:
Status post TNK 11/[address] scan x 2 with no acute bleed
MRI of the brain without acute stroke
PT OT eval and sorter lumber straightener consulted
Speech therapy recommend regular diet
Neurology ordering aspirin and continue statins.
Echo 11/10 shows EF of 55 to 60%, basal inferior hypokinesis, mild aortic regurgitation, ectatic proximal ascending aorta 3.8 cm, interatrial septum intact without shunting.
Telemetry-shows mostly atrial tachycardia. Doubt atrial fibrillation. Appreciate cardiology input with thinks it is atrial tachycardia. Will arrange outpatient cardiac monitoring.
Confusion
Likely related to stroke
Resolved
History of subdural hematoma:
Patient was in rehab after intracranial bleed and then was doing home PT OT
History of CAD:
On anti-ischemic regimen until able to take oral
Echo as above. Patient without any chest pain or angina. Continue with his home medication and follow-up with cardiology as outpatient.
Diabetes mellitus type 2:
Insulin sliding scale
Monitor blood sugars closely
Anemia:
No signs of active bleeding
Continue to monitor hemoglobin closely
Other medical problems:
History of Polio
History of depression
History of GERD
Hypertension
Hyperlipidemia
BPH
DVT prophylaxis
SCDs (less than 24 hours of thrombolytics)
CODE STATUS:
Full code
PT/OT eval recommends acute rehab. Patient agreeable.
Discussed with case management regarding disposition.
Anticipated Discharge: Within 24 hours
Subjective/Interval History
-
Date of Service: November 12, 2024
Denies any speech impairment or any new limb weakness.
Denies any headache.
No dizziness.
No nausea vomiting.
No shortness of breath, chest pain.
Objective Data
-
Labs:
Laboratory Results
11/12/24
12:21
Glucose 408 H
Vital Signs:
Vital Signs
Temp Pulse Resp BP Pulse Ox
97.8 F 74 18 118/55 96
11/12/24 11:45 11/12/24 11:45 11/12/24 11:45 11/12/24 11:45 11/12/24 11:45
I&O
11/11/24 11/12/24 11/13/24
06:59 06:59 06:59
Intake Total 835 / 835
Output Total 1175 / 1175 1250 / 1250
Balance -340 / -340 -1250 / -1250
Physical Exam
-
General: Comfortable
Respiratory: Clear to Auscultation and Non Labored Respirations; Negative Accessory Resp Muscle Use
Cardiac: Regular Rhythm and S1/S2
GI: Soft
Neuro: AO x 3 and Other (No aphasia today)
Psych: Calm; Negative Confused
Data Reviewed
-
Labs: Labs Reviewed by me
[2024-11-12 16:07] LABS: Glucose - Point of Care 323 mg/dl (70-99)
--- NOTE | 2024-11-12 16:59 | CM ---
Spoke with attending who stated that patient will be ready to transition to rehab soon. Will call [facility] for bed availability. Will meet with patient to obtain additional potential facilities.
Plan: Case management will continue to follow and assist with discharge planning. Acute Rehab.
[2024-11-12] MEDS: NOVOLOG FLEXPEN-MODERATE RESISTANCE 7 UNITS SC (17:39)
[2024-11-12] MEDS: LANTUS 0.1 UNITS SC (20:48)
[2024-11-12] MEDS: CRESTOR 20 MG PO (20:48)
[2024-11-12 20:51] LABS: Glucose - Point of Care 241 mg/dl (70-99)
[2024-11-13 03:17] VITALS: BP 116/55
[2024-11-13 07:43] LABS: Glucose - Point of Care 194 mg/dl (70-99)
[2024-11-13] MEDS: ASPIR LOW (ENTERIC COATED) 81 MG PO (08:29)
[2024-11-13] MEDS: NOVOLOG FLEXPEN-MODERATE RESISTANCE 1 UNITS SC (08:29)
[2024-11-13 10:01] VITALS: BP 119/58; PULSE 64; PULSE 68; O2SAT 100
[2024-11-13 11:29] VITALS: BP 119/64
[2024-11-13 11:33] LABS: Glucose - Point of Care 453 mg/dl (70-99)
[2024-11-13 12:46] LABS: Glucose 384 mg/dl (70-99)
[2024-11-13] MEDS: NOVOLOG FLEXPEN-MODERATE RESISTANCE 9 UNITS SC (12:49)
--- NOTE | 2024-11-13 13:31 | W.PN.HOSP.TC ---
Today's Communication/Plan
-
Increase insulin
DC
Assessment / Plan
Assessment / Plan
A/P:
Suspect acute stroke:
Status post TNK 11/[address] scan x 2 with no acute bleed
MRI of the brain without acute stroke
PT OT eval and rug weaver consulted
Speech therapy recommend regular diet
Neurology ordering aspirin and continue statins.
Echo 11/10 shows EF of 55 to 60%, basal inferior hypokinesis, mild aortic regurgitation, ectatic proximal ascending aorta 3.8 cm, interatrial septum intact without shunting.
Telemetry-shows mostly atrial tachycardia. Doubt atrial fibrillation. Appreciate cardiology input with thinks it is atrial tachycardia. Will arrange outpatient cardiac monitoring.
Confusion
Likely related to stroke
Resolved
History of subdural hematoma:
Patient was in rehab after intracranial bleed and then was doing home PT OT
History of CAD:
On anti-ischemic regimen until able to take oral
Echo as above. Patient without any chest pain or angina. Continue with his home medication and follow-up with cardiology as outpatient.
Diabetes mellitus type 2:
Blood sugars not under control. Hemoglobin A1c 8.5.
Increase the dose of Lantus. Patient normally does not check blood sugars at home. Advised to keep an eye on a daily prebreakfast blood sugars.
Until optimal we will also add nutritional insulin with meals.
Insulin sliding scale
Monitor blood sugars closely
Anemia:
No signs of active bleeding
Continue to monitor hemoglobin closely
Other medical problems:
History of Polio
History of depression
History of GERD
Hypertension
Hyperlipidemia
BPH
DVT prophylaxis
SCDs (less than 24 hours of thrombolytics)
CODE STATUS:
Full code
PT/OT eval recommends acute rehab.
Medically stable for acute rehab.
Anticipated Discharge: Today
Subjective/Interval History
-
Date of Service: November 13, 2024
Patient voices no new complaints. Denies any speech impairment, vision impairment or any limb weakness other than chronic weakness from polio.
Denies any shortness of breath or chest pain. No palpitations.
No nausea vomiting.
No fever or chills.
Objective Data
-
Labs:
Laboratory Results
11/13/24
12:01
Glucose 384 H
Vital Signs:
Vital Signs
Temp Pulse Resp BP Pulse Ox
98.0 F 70 16 119/64 98
11/13/24 11:29 11/13/24 11:29 11/13/24 11:29 11/13/24 11:29 11/13/24 11:29
I&O
11/12/24 11/13/24 11/14/24
06:59 06:59 06:59
Intake Total 1020 / 1020
Output Total 1250 / 1250 2100 / 2100
Balance -1250 / -1250 -1080 / -1080
Physical Exam
-
General: Comfortable
Respiratory: Clear to Auscultation and Non Labored Respirations; Negative Accessory Resp Muscle Use
Cardiac: Regular Rhythm and S1/S2
Neuro: AO x 3 and No Motor Deficits (no new deficits); Negative Slurred Speech or Facial Droop
Psych: Calm; Negative Confused or Agitated
Data Reviewed
-
Labs: Labs Reviewed by me
[2024-11-13] MEDS: FARXIGA 10 MG PO (14:34)
[2024-11-13 15:26] VITALS: BP 147/64
--- NOTE | 2024-11-13 16:02 | CM ---
Spoke with Ksenia in admissions at [facility] [phone] who stated that they are reviewing patient's clinical and will provide determination regarding acceptance and bed availability.
Plan: Case management will continue to follow and assist with discharge planning. Patient hopeful for acute rehab at [facility].
[2024-11-13] MEDS: NOVOLOG FLEXPEN-MODERATE RESISTANCE 3 UNITS SC (16:39)
[2024-11-13] MEDS: GLUCOPHAGE 1000 MG PO (16:39)
[2024-11-13 16:40] LABS: Glucose - Point of Care 233 mg/dl (70-99)
[2024-11-13 21:37] LABS: Glucose - Point of Care 250 mg/dl (70-99)
[2024-11-13] MEDS: MELATONIN 6 MG PO (21:45)
[2024-11-13] MEDS: CRESTOR 20 MG PO (21:45)
[2024-11-13] MEDS: LANTUS 0.18 UNITS SC (21:46)
[2024-11-13 23:43] VITALS: BP 137/68
[2024-11-14] MEDS: DULCOLAX 10 MG RECTAL (03:35)
[2024-11-14 07:00] VITALS: BP 113/54
[2024-11-14 07:56] LABS: Glucose - Point of Care 180 mg/dl (70-99)
[2024-11-14] MEDS: GLUCOPHAGE 1000 MG PO (09:02)
[2024-11-14] MEDS: ASPIR LOW (ENTERIC COATED) 81 MG PO (09:02)
[2024-11-14] MEDS: FARXIGA 10 MG PO (09:02)
[2024-11-14] MEDS: NOVOLOG FLEXPEN-MODERATE RESISTANCE 1 UNITS SC (09:03)
[2024-11-14 11:36] LABS: Glucose - Point of Care 317 mg/dl (70-99)
[2024-11-14] MEDS: NOVOLOG FLEXPEN-MODERATE RESISTANCE 7 UNITS SC (12:34)
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
--- NOTE | 2024-11-14 14:36 | CM ---
Spoke with Ksenia Fung who stated that they do have a bed for patient at [facility], after 16:00. # for report ext [phone] .
Spoke with patient who is agreeable to plan. He signed IMM, it was reviewed now on chart.
Plan: Case management will continue to follow and assist with discharge planning. [facility].
[2024-11-14 15:05] VITALS: BP 108/63
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
--- NOTE | 2024-11-14 16:47 | PTCARENOTE ---
Pt for DC to [facility]; report called to Yisel KAUFFMAN. Pt transferred via stretcher with all personal belongings. Condition stable at time of transfer.
[2024-11-14 17:02] LABS: Glucose - Point of Care 194 mg/dl (70-99)
== END 2024-11-14 16:36 | DRG 62 ==
LOC: 4 EAST ACU 19:07
PROVIDERS: Hospitalist; ADMITTING PHYSICIAN Internal Medicine; ATTENDING PHYSICIAN Internal Medicine; CONSULT PHYSICIAN Internal Medicine; CONSULT PHYSICIAN Internal Medicine Cardiovascular Disease; CONSULT PHYSICIAN Physical Medicine & Rehabilitation; CONSULT PHYSICIAN Psychiatry & Neurology Clinical Neurophysiology; EMERGENCY PHYSICIAN Emergency Medicine
PROC: 3E03317 Introduction of Other Thrombolytic into Peripheral Vein, Percutaneous Approach (ICD-10-PCS; 2024-11-08)
DX: I63.89 Other cerebral infarction (principal); I47.19 Other supraventricular tachycardia; I25.10 Atherosclerotic heart disease of native coronary artery without angina pectoris; E11.65 Type 2 diabetes mellitus with hyperglycemia; I10 Essential (primary) hypertension; E78.00 Pure hypercholesterolemia, unspecified; R47.01 Aphasia; R29.810 Facial weakness; D64.9 Anemia, unspecified; D72.829 Elevated white blood cell count, unspecified; R29.720 NIHSS score 20; R60.0 Localized edema; B91 Sequelae of poliomyelitis; I49.1 Atrial premature depolarization; V89.2XXA Person injured in unspecified motor-vehicle accident, traffic, initial encounter; I25.2 Old myocardial infarction; Z95.1 Presence of aortocoronary bypass graft; Z87.891 Personal history of nicotine dependence; Z79.4 Long term (current) use of insulin
CPT/HCPCS: 0042T; 70450; 70496; 70498; 70551; 71045; 74018; 74230; 80048; 80061; 82947; 82962; 83036; 85025; 85027; 85610; 85730; 92523; 92526; 92610; 92611; 93005; 93306; 95816; 96361; 96374; 97129; 97163; 97167; 97530; 97535; 99291; 99292; J3101; Q9967